=== PATIENT | male | born 1965 | race Caucasian/White ===

== ENCOUNTER 2017-08-27 05:06 | Emergency (ER) | payer BC ==
[2017-08-27 05:40] VITALS: BMI 25.8
--- NOTE | 2017-08-27 06:28 | PDOC ---
*Physical Exam - Vital Signs Last Vital Signs Temp Pulse Resp BP Pulse Ox 87 14 100/71 96 08/27/17 05:23 08/27/17 05:23 08/27/17 05:23 08/27/17 05:23 ED Treatment Course - LABORATORY CBC & Chemistry Diagram: 08/27/17 06:30 08/27/17 06:30 Medical Decision Making - Medical Decision Making 08/27/17 06:28 agree with care from JUAN ANTONIO Michelle *DC/Admit/Observation/Transfer Diagnosis at time of Disposition: Pedal edema - Discharge Dispostion Disposition: HOME Condition at time of disposition: Good - Prescriptions Prescriptions: Amiodarone HCl [Cordarone -] 200 mg PO DAILY #30 tablet Amoxicillin/Potassium Clav [Amox-Clav 875-125 mg Tablet] 1 each PO BID #4 tablet Apixaban [Eliquis] 10 mg PO BID #13 tablet Apixaban [Eliquis] 5 mg PO BID #30 tablet Aspirin 81 mg PO DAILY #30 tab.chew Atorvastatin Ca [Lipitor] 80 mg PO HS #30 tab Docusate Sodium [Colace] 100 mg PO TID PRN #30 capsule PRN Reason: Constipation Furosemide [Lasix] 20 mg PO BID #28 tablet Metoprolol Succinate [Toprol Xl] 25 mg PO DAILY #30 tab.er.24h - Referrals Referrals: STAFF,NOT ON [Primary Care Provider] - - Patient Instructions Printed Discharge Instructions: DI for Dependent Edema Additional Instructions: At this time your ultrasound of your lower extremities show no acute findings. Please continue the medication as previously prescribed and elevate your legs as much as possible when not ambulating. Please also follow-up with your surgeon and continue with your postoperative instructions. - Post Discharge Activity
--- NOTE | 2017-08-27 06:29 | PDOC ---
History of Present Illness - General Chief Complaint: Allergic Reaction Stated Complaint: ALLERGIC RX Time Seen by Provider: 08/27/17 05:42 History Source: Patient - History of Present Illness Initial Comments: 08/27/17 06:24 52 year old male s/p triple bypass 08/08 at [facility] discharged last night. as per patient on discharge patient was noted to have left leg swelling now noted to have right leg swelling. denies SOB, dizziness, fever/chills. patient is currently on augmentin, lasix and eloquis. Past History - Past Medical History Allergies/Adverse Reactions: Allergies Allergy/AdvReac Type Severity Reaction Status Date / Time No Allergy Information Allergy Verified 08/27/17 05:23 Available Home Medications: Ambulatory Orders Alprazolam [Xanax] 2 mg PO BID 08/27/17 Amiodarone HCl 200 mg PO DAILY 08/27/17 Amoxicillin/Potassium Clav [Augmentin 875-125 Tablet] 1 each PO DAILY 08/27/17 Apixaban [Eliquis -] 5 mg PO DAILY 08/27/17 Buprenorphine HCl/Naloxone HCl [Suboxone 8 mg-2 mg Sl Tablets] 1 each SL BID 12/09 Docusate Sodium 100 mg PO DAILY 08/27/17 Furosemide [Lasix -] 20 mg PO DAILY 08/27/17 Metoprolol Succinate [Toprol Xl] 25 mg PO DAILY 08/27/17 Asthma: Yes COPD: No HTN: Yes - Surgical History Cardiac Surgery: Yes (Triple Bypass, 08/09/2017) - Immunization History Immunization Up to Date: Yes - Suicide/Smoking/Psychosocial Hx Smoking History: Former smoker Have you smoked in the past 12 months: No If you are a former smoker, when did you quit?: 08/08/2017 Information on smoking cessation initiated: No Hx Alcohol Use: No Drug/Substance Use Hx: No Substance Use Type: None Review of Systems - Review of Systems Able to Perform ROS?: Yes Is the patient limited Danish proficient: No Constitutional: No: Symptoms Reported, See HPI, Chills, Diaphoresis, Fever, Loss of Appetite, Malaise, Night Sweats, Weakness, Weight Stable, Unintentional Wgt. Loss, Unexplained wgt Loss, Other Respiratory: No: Symptoms reported, See HPI, Cough, Orthopnea, Shortness of Breath, SOB with Exertion, SOB at Rest, Stridor, Wheezing, Productive cough, Hemoptysis, Other Cardiac (ROS): Yes: Edema (lower extremity edema). No: Symptoms Reported, See HPI, Chest Pain, Irregular Heart Rate, Lightheadedness, Palpitations, Syncope, Chest Tightness, Other *Physical Exam - Vital Signs Last Vital Signs Temp Pulse Resp BP Pulse Ox 87 14 100/71 96 08/27/17 05:23 08/27/17 05:23 08/27/17 05:23 08/27/17 05:23 - Physical Exam General Appearance: Yes: Appropriately Dressed Respiratory/Chest: positive: Lungs Clear, Normal Breath Sounds Cardiovascular: positive: Regular Rhythm, Regular Rate, Other (midsternal healing surgical wound . lap site small serous drainage noted. ) Gastrointestinal/Abdominal: positive: Normal Bowel Sounds, Soft Musculoskeletal: positive: Normal Inspection Extremity: positive: Normal Capillary Refill, Normal Inspection, Normal Range of Motion, Pedal Edema (b/l pedal pitting edema. left lower extremity pulse not palpated. ) Progress Note - Progress Note Progress Note: A: pedal edema P: cbc cmp bnp *DC/Admit/Observation/Transfer Diagnosis at time of Disposition: Pedal edema - Referrals Referrals: STAFF,NOT ON [Primary Care Provider] - - Patient Instructions - Post Discharge Activity
[2017-08-27 06:34] VITALS: BP 102/76; PULSE 84
[2017-08-27 07:18] LABS: BASO % 0.8 % (0-2.0); EOS % 1.4 % (0-4.5); HEMATOCRIT 28.9 % (35.4-49); HEMOGLOBIN 8.9 GM/dL (11.7-16.9); LYMPH % 20.9 % (8-40); MCH 29.3 pg (25.7-33.7); MEAN CELL VOLUME 94.6 fl (80-96); MEAN PLT VOLUME 8.5 fl (7.5-11.1); MONO % 9.6 % (3.8-10.2); NEUT % 67.3 % (42.8-82.8); PLATELET COUNT 340 K/MM3 (134-434); RBC 3.06 M/mm3 (4.00-5.60); RDW 16.4 % (11.9-15.9); WHITE BLOOD COUNT 16.1 K/mm3 (4.0-10.0)
--- NOTE | 2017-08-27 07:27 | PDOC ---
*Physical Exam - Vital Signs Last Vital Signs Temp Pulse Resp BP Pulse Ox 84 14 102/76 96 08/27/17 05:53 08/27/17 05:53 08/27/17 05:53 08/27/17 05:23 ED Treatment Course - LABORATORY CBC & Chemistry Diagram: 08/27/17 06:30 08/27/17 06:30 Medical Decision Making - Medical Decision Making 08/27/17 07:17 Patient received in sign out from JUAN ANTONIO Michelle. Patient pending ultrasound of bilateral lower extremities and arterial ultrasound . patient status post CABG and is currently on eliquis. 08/27/17 09:50 Arterial duplex of the left lower extremity shows no evidence of occlusion or significant stenosis. Duplex of bilateral lower extremity shows no vascular compromise of DVT. Patient to be discharged home with recommendations to follow- up with his surgeon and continue with medication as prescribed postoperatively. *DC/Admit/Observation/Transfer Diagnosis at time of Disposition: Pedal edema - Discharge Dispostion Disposition: HOME Condition at time of disposition: Good - Referrals Referrals: STAFF,NOT ON [Primary Care Provider] - - Patient Instructions Printed Discharge Instructions: DI for Dependent Edema Additional Instructions: At this time your ultrasound of your lower extremities show no acute findings. Please continue the medication as previously prescribed and elevate your legs as much as possible when not ambulating. Please also follow-up with your surgeon and continue with your postoperative instructions. - Post Discharge Activity
[2017-08-27 07:42] LABS: ALBUMIN 2.8 g/dl (3.4-5.0); ANION GAP 10 (8-16); BILIRUBIN,TOTAL 0.4 mg/dL (0.2-1.0); BLOOD UREA NITROGEN 15 mg/dL (7-18); CALCIUM 7.8 mg/dL (8.5-10.1); CHLORIDE 104 mmol/L (98-107); CO2 25 mmol/L (21-32); CREATININE 1.4 mg/dL (0.7-1.3); GLUCOSE,RANDOM 98 mg/dL (74-106); MAGNESIUM 2.3 mg/dL (1.8-2.4); POTASSIUM 4.5 mmol/L (3.5-5.1); SGOT/AST 17 U/L (15-37); SGPT/ALT 43 U/L (12-78); SODIUM 139 mmol/L (136-145); TOT PROT 6.1 g/dl (6.4-8.2)
[2017-08-27 07:43] LABS: INR 2.42 (0.82-1.09); PROTHROMBIN TIME (PATIENT) 27.4 SEC (9.98-11.88)
[2017-08-27 07:44] LABS: ALK PHOS 82 U/L (45-117)
--- NOTE | 2017-08-27 12:27 | EKG ---
Test Reason : Blood Pressure : / mmHG Vent. Rate : 082 BPM Atrial Rate : 082 BPM P-R Int : 298 ms QRS Dur : 128 ms QT Int : 400 ms P-R-T Axes : 043 053 241 degrees QTc Int : 467 ms SINUS RHYTHM WITH 1ST DEGREE A-V BLOCK NON-SPECIFIC INTRA-VENTRICULAR CONDUCTION BLOCK POSSIBLE INFERIOR INFARCT , AGE UNDETERMINED ABNORMAL ECG NO PREVIOUS ECGS AVAILABLE Confirmed by COLEMAN FAJARDO, ARNULFO ([id number]) on 08/27/2017 12:27:43 PM Referred By: Confirmed By:ARNULFO CEE MD
== END 2017-08-27 10:26 | disposition home or self-care (01) ==
LOC: JER 05:06
DX: R60.9 Edema, unspecified (principal); I25.10 Atherosclerotic heart disease of native coronary artery without angina pectoris; I25.82 Chronic total occlusion of coronary artery; I10 Essential (primary) hypertension; Z95.1 Presence of aortocoronary bypass graft; Z87.891 Personal history of nicotine dependence; J45.909 Unspecified asthma, uncomplicated
CPT/HCPCS: 36415; 80053; 82550; 83735; 83880; 84484; 85025; 85610; 93005; 93010; 93926-TC; 93970-TC; 99283-25

== ENCOUNTER 2017-09-07 21:27 | Inpatient (IN) | payer BC ==
--- NOTE | 2017-09-07 22:40 | PDOC ---
Attending Attestation - HPI HPI: 09/07/17 23:25 The patient is a 52 year old male, with a significant past medical history of triple bypass 08/08/18, previously seen in the ED on 08/27/17 for left leg swelling, who presents to the emergency department with bilateral lower extremity redness and swelling. Patient states that his left leg has worsened and become erythematous and his right leg has begun to swell as well. Patient has a low grade fever as well. Patient denies chest pain upon rest and admits to some chest discomfort when he coughs. He denies any recent chills, headache or dizziness. He denies any recent nausea , vomit, diarrhea or constipation. He denies any recent shortness of breath. He denies any recent dysuria, frequency, urgency or hematuria. <Dilma Spaulding - Last Filed: 09/07/17 23:25> - Resident Resident Name: Marty Bragg - ED Attending Attestation I have performed the following: I have examined & evaluated the patient, The case was reviewed & discussed with the resident, I agree w/resident's findings & plan, Exceptions are as noted - Physicial Exam PE: 09/07/17 22:51 Physical Exam General Appearance: Yes: Appropriately Dressed. No: Apparent Distress, Intoxicated HEENT: positive: EOMI, GIBRAN, Normal ENT Inspection, Normal Voice, TMs Normal, Pharynx Normal. negative: Pale Conjunctivae, Photophobia, Scleral Icterus (R), Scleral Icterus (L) Neck: positive: Trachea midline, Normal Thyroid, Supple. negative: Tender, Rigid, Carotid bruit, Stridor, Lymphadenopathy (R), Lymphadenopathy (L), Thyromegaly Respiratory/Chest: positive: Lungs Clear, Normal Breath Sounds, well healed median sternotomy scar negative: Chest Tender, Respiratory Distress, Accessory Muscle Use, Labored Respiration, RES, Crackles, Rales, Rhonchi, Stridor, Wheezing, Dullness Cardiovascular: positive: Regular Rhythm, Regular Rate, S1, S2. negative: Edema , JVD, Murmur, Bradycardia, Tachycardia Vascular Pulses: Dorsalis-Pedis (R): 2+, Doralis-Pedis (L): 2+ Gastrointestinal/Abdominal: positive: Normal Bowel Sounds, Flat, Soft. negative : Tender, Organomegaly, Pulsatile Mass, Increased Bowel Sounds, Decreased BS, Distended, Guarding, Rebound, Hernia, Hepatomegaly, Spleenomegaly Lymphatic: negative: Adenopathy, Tenderness Musculoskeletal: positive: Normal Inspection. negative: CVA Tenderness, Decreased Range of Motion Extremity: positive: bilateral lower extremity edema L>R. + ertheyma to left lower extremity, Normal Range of Motion, Pelvis Stable. negative: Tender, Integumentary: positive: Normal Color, Dry, Warm. negative: Cyanotic, Erythema , Jaundice, Rash Neurologic: positive: photo finish photographer II-XII NML intact, Fully Oriented, Alert, Normal Mood/ Affect, Motor Strength 5/5. negative: EOM Palsy, Facial Droop, Sensory Deficit - Medical Decision Making 09/08/17 02:06 Pt to be admitted for IV ABx for left leg cellulitis <Brad Ballard - Last Filed: 09/08/17 02:07>
[2017-09-07 23:15] LABS: BASO % 1.3 % (0-2.0); EOS % 2.7 % (0-4.5); HEMATOCRIT 25.7 % (35.4-49); HEMOGLOBIN 8.1 GM/dL (11.7-16.9); LYMPH % 20.4 % (8-40); MCH 28.6 pg (25.7-33.7); MCHC 31.5 g/dl (32.0-35.9); MEAN CELL VOLUME 90.8 fl (80-96); MEAN PLT VOLUME 8.9 fl (7.5-11.1); MONO % 12.1 % (3.8-10.2); NEUT % 63.5 % (42.8-82.8); PLATELET COUNT 211 K/MM3 (134-434); RBC 2.83 M/mm3 (4.00-5.60); RDW 16.5 % (11.9-15.9); WHITE BLOOD COUNT 8.9 K/mm3 (4.0-10.0)
[2017-09-07 23:47] LABS: ALBUMIN 2.7 g/dl (3.4-5.0); ANION GAP 9 (8-16); BILIRUBIN,TOTAL 0.3 mg/dL (0.2-1.0); BLOOD UREA NITROGEN 11 mg/dL (7-18); CALCIUM 7.6 mg/dL (8.5-10.1); CHLORIDE 101 mmol/L (98-107); CO2 28 mmol/L (21-32); CREATININE 1.4 mg/dL (0.7-1.3); GLUCOSE,RANDOM 94 mg/dL (74-106); POTASSIUM 4.1 mmol/L (3.5-5.1); SGOT/AST 27 U/L (15-37); SGPT/ALT 25 U/L (12-78); SODIUM 138 mmol/L (136-145); TOT PROT 6.9 g/dl (6.4-8.2)
--- NOTE | 2017-09-07 23:48 | PDOC ---
History of Present Illness - General Chief Complaint: Chest Pain Stated Complaint: CHEST APIN Time Seen by Provider: 09/07/17 21:51 History Source: Patient Exam Limitations: No Limitations - History of Present Illness Initial Comments: 09/07/17 23:48 The patient is a 52M with a PMH of HTN and is s/p open heart surgery who presents to the ED with complaints of increased R LE swelling. The patient states that when he was d/c on 08/[address] [facility] from his open heart surgery, he had baseline L leg edema. Since then, his L LE edema has worsened. In addition, he states that he has had 2 days of R LE edema which has not happened before. He also notes that his L LE has become more red. He denies any fever, chills, nausea, vomiting, or surgical scar pain. Past History - Past Medical History Allergies/Adverse Reactions: Allergies Allergy/AdvReac Type Severity Reaction Status Date / Time heparin Allergy Verified 09/07/17 22:36 Home Medications: Ambulatory Orders Alprazolam [Xanax] 2 mg PO BID 08/27/17 Amiodarone HCl [Cordarone -] 200 mg PO DAILY #30 tablet 08/27/17 Amoxicillin/Potassium Clav [Amox-Clav 875-125 mg Tablet] 1 each PO BID #4 tablet 08/27/17 Apixaban [Eliquis] 5 mg PO BID #30 tablet 08/27/17 Aspirin 81 mg PO DAILY #30 tab.chew 08/27/17 Atorvastatin Ca [Lipitor] 80 mg PO HS #30 tab 08/27/17 Buprenorphine HCl/Naloxone HCl [Suboxone 8 mg-2 mg Sl Tablets] 1 each SL BID 12/09 Docusate Sodium [Colace] 100 mg PO TID PRN #30 capsule 08/27/17 Furosemide [Lasix] 20 mg PO BID #28 tablet 08/27/17 Metoprolol Succinate [Toprol Xl] 25 mg PO DAILY #30 tab.er.24h 08/27/17 Asthma: Yes COPD: No HTN: Yes - Surgical History Cardiac Surgery: Yes (Triple Bypass, 08/09/2017) - Immunization History Immunization Up to Date: Yes - Suicide/Smoking/Psychosocial Hx Smoking History: Unknown if ever smoked Have you smoked in the past 12 months: No If you are a former smoker, when did you quit?: 08/08/2017 Information on smoking cessation initiated: No Hx Alcohol Use: No Drug/Substance Use Hx: No Substance Use Type: None Review of Systems - Review of Systems Able to Perform ROS?: Yes Comments:: 09/07/17 23:57 GENERAL/CONSTITUTIONAL: No fever or chills. No weakness. HEAD, EYES, EARS, NOSE AND THROAT: No change in vision. No ear pain or discharge. No sore throat. GASTROINTESTINAL: No nausea, vomiting, diarrhea, constipation, or abdominal pain. GENITOURINARY: No dysuria, frequency, hematuria, or change in urination. CARDIOVASCULAR: No chest pain, palpitations, or lightheadedness. RESPIRATORY: No cough, wheezing, shortness of breath, or hemoptysis. MUSCULOSKELETAL: No joint or muscle swelling or pain. No neck or back pain. SKIN: No rash or lesions. NEUROLOGIC: No headache, numbness, tingling, weakness, loss of consciousness, or change in strength/sensation. ENDOCRINE: No increased thirst. No abnormal weight change. HEMATOLOGIC/LYMPHATIC: No anemia, easy bleeding, or history of blood clots. ALLERGIC/IMMUNOLOGIC: No hives or skin allergy. Is the patient limited Malian proficient: No *Physical Exam - Vital Signs Last Vital Signs Temp Pulse Resp BP Pulse Ox 100.0 F H 82 14 99/60 99 09/07/17 21:53 09/07/17 21:53 09/07/17 21:53 09/07/17 21:53 09/07/17 21:53 - Physical Exam Comments: 09/08/17 02:11 GENERAL: Well developed, well nourished. Awake and alert. No acute distress. HEENT: Normocephalic, atraumatic. Hearing grossly normal. Moist mucous membranes. PERRLA, EOMI. No conjunctival pallor. Sclera are non-icteric. Oropharynx is clear. NECK: Supple. Full ROM. No JVD. Carotid pulses 2+ and symmetric, without bruits. No thyromegaly. No lymphadenopathy. CARDIOVASCULAR: Regular rate and rhythm. No murmurs, rubs, or gallops. Distal pulses are 2+ and symmetric. PULMONARY: No evidence of respiratory distress. Lungs clear to auscultation bilaterally. No wheezing, rales or rhonchi. ABDOMINAL: Soft. Non-tender. Non-distended. No rebound or guarding. No organomegaly. Normoactive bowel sounds. GENITOURINARY: No CVA tenderness bilaterally. MUSCULOSKELETAL: Normal range of motion at all joints. No bony deformities or tenderness. EXTREMITIES: 4+ edema in LE b/l. L LE is erythematous, warm to touch, non- blanching. No cyanosis. No clubbing. No calf tenderness. SKIN: Warm and dry. Normal capillary refill. No rashes. No jaundice. NEUROLOGICAL: Alert, awake, appropriate. Cranial nerves 2-12 intact. Normal speech. Gait is normal without ataxia. PSYCHIATRIC: Cooperative. Good eye contact. Appropriate mood and affect. Heart Score/ECG Review #1 ECG reviewed & interpreted by me at: 02:17 General ECG Interpretation: Sinus Rhythm, Normal Rate, Normal Intervals, No acute ischemic changes Compared to previous ECG there are: No significant change ED Treatment Course - LABORATORY CBC & Chemistry Diagram: 09/07/17 23:00 09/07/17 22:34 - ADDITIONAL ORDERS Additional order review: 09/07/17 23:00 RBC 2.83 L MCV 90.8 MCHC 31.5 L RDW 16.5 H MPV 8.9 Neutrophils % 63.5 Lymphocytes % 20.4 Monocytes % 12.1 H Eosinophils % 2.7 D Basophils % 1.3 - RADIOLOGY Radiology Studies Ordered: Category Date Time Status CHEST X-RAY PORTABLE* [RAD] Stat Radiology 09/07/17 22:38 Taken DUPLEX VASCUL US-2LEGS [US] Stat Ultrasound 09/07/17 22:40 Completed Medical Decision Making - Medical Decision Making 09/08/17 01:35 The patient is a 52M with a PMH of HTN and s/p open heart surgery who is presenting with new onset b/l LE edema and L LE cellulitis. Broad spectrum abx started (vanc/zosyn). 1 L fluid ordered 2/2 hypotension. BNP elevated 4500+. Pt admitted to Dr. Hoskins. *DC/Admit/Observation/Transfer Diagnosis at time of Disposition: Pedal edema Acute exacerbation of CHF (congestive heart failure) Qualifiers: Congestive heart failure type: unspecified Qualified Code(s): I50.9 - Heart failure, unspecified - Discharge Dispostion Condition at time of disposition: Stable Admit: Yes - Referrals Referrals: STAFF,NOT ON [Primary Care Provider] - - Patient Instructions - Post Discharge Activity
[2017-09-07 23:50] LABS: ALK PHOS 175 U/L (45-117); N-TERMINAL BNP 4544.89 pg/ml (5-125)
[2017-09-07 23:51] LABS: INR 1.86 (0.82-1.09)
[2017-09-07] MEDS ORDERED: SODIUM CHLORIDE 0.9% 1000 ML INFUS.BAG IV ONE (23:51)
[2017-09-07] MEDS ORDERED: VANCOMYCIN 1,000 MG in DEXTROSE 5%-WATER - 250 ML IVPB ONE (23:51)
[2017-09-07] MEDS ORDERED: PIPERACILLIN/TAZOB 3.375 GM/50 ML PRE-DOCKED IV ONE (23:51)
[2017-09-07] MEDS ORDERED: VANCOMYCIN 1 GRAM (PRE-DOCKED) 1,000 MG/250 ML BAG IVPB ONE (23:56)
--- NOTE | 2017-09-08 02:48 | HP ---
<Gordy Hoskins - Last Filed: 09/08/17 05:55> ATTENDING PHYSICIAN STATEMENT I saw and evaluated the patient. I reviewed the resident's note and discussed the case with the resident. I agree with the resident's findings and plan as documented. 52 yo with recent CABG presents with LE edema and decreased UA output . Has clinical signs of CHF on exam . Labs reveal anemia of 8.1 . Vital Signs Temperature 100.0 F H 09/07/17 21:53 Pulse Rate 82 09/07/17 21:53 Respiratory Rate 14 09/07/17 21:53 Blood Pressure 99/60 09/07/17 21:53 O2 Sat by Pulse Oximetry (%) 99 09/07/17 21:53 HEENT PERRLA, DRY MM CVS bibasilar crackles , S1 S2 WNL sternotomy scar healing CBC, BMP 09/07/17 23:00 09/07/17 22:34 CMP Sodium 138 mmol/L (136-145) 09/07/17 22:34 Potassium 4.1 mmol/L (3.5-5.1) 09/07/17 22:34 Chloride 101 mmol/L (98-107) 09/07/17 22:34 Carbon Dioxide 28 mmol/L (21-32) 09/07/17 22:34 Anion Gap 9 (8-16) 09/07/17 22:34 BUN 11 mg/dL (7-18) D 09/07/17 22:34 Creatinine 1.4 mg/dL (0.7-1.3) H 09/07/17 22:34 Creat Clearance w eGFR 53.22 (>60) 09/07/17 22:34 Random Glucose 94 mg/dL (74-106) 09/07/17 22:34 Lactic Acid 1.2 mmol/L (0.0-2.0) 09/07/17 23:27 Calcium 7.6 mg/dL (8.5-10.1) L 09/07/17 22:34 Total Bilirubin 0.3 mg/dL (0.2-1.0) D 09/07/17 22:34 AST 27 U/L (15-37) D 09/07/17 22:34 ALT 25 U/L (12-78) D 09/07/17 22:34 Alkaline Phosphatase 175 U/L (45-117) H D 09/07/17 22:34 Creatine Kinase 83 IU/L (39-308) 09/07/17 22:34 Troponin I 0.04 ng/ml (0.00-0.05) D 09/07/17 22:34 B-Natriuretic Peptide 4544.89 pg/ml (5-125) H 09/07/17 22:34 Total Protein 6.9 g/dl (6.4-8.2) 09/07/17 22:34 Albumin 2.7 g/dl (3.4-5.0) L 09/07/17 22:34 Agree with A/p above will request records from [facility] in am <Hunter Tyler - Last Filed: 09/08/17 19:50> CHIEF COMPLAINT: b/l LE edema PCP: Ene Raymond (cell: [phone], fax [phone]) HISTORY OF PRESENT ILLNESS: Pt is a 52 y/o M with PMH Htn, CVA (2012), [place] (2015), CABG 08/2017 who presents to ED with b/l LE swelling. Pt states that he was d/c'ed from [facility] on 08/26 , and at that time, his left leg was swollen (pt had vein graft harvested from left leg). Pt states that on 08/27, he developed R leg swelling, for which he visited [facility] and had dopplers done, which were negative. Pt states he went home , continued taking his medications as directed and his leg swelling did not resolve, so he finally came to the ED tonight. In that time, pt notes that he has not been urinating more than once daily despite eating and drinking normally and taking lasix. At this time, pt states that both legs are mildly tender, and has noticed the the left feels warmer than the right. Pt denies fever, chills, nausea, vomiting, diarrhea, headache, sob, palpitations , abdominal pain, chest pain. Note: pt states he was told at [facility] that he had a "reaction" to heparin. Does not recall hearing "HIT" ER course was notable for: (1) wbc 8.1, INR 1.86 (2.42 on 08/27/2017), Administrative Assistant Data Entry 1.4 (pt does not report CKD hist) , BNP 4544 (2229 on 08/27/2017) (2) CXR unremarkable. Dopplers reportedly unremarkable pending official report (3) Recent Travel: denies PAST MEDICAL HISTORY: HTN, Asthma, Anxiety, CVA (2013), [place] (2016), PAST SURGICAL HISTORY: CABG (08/2017) Social History: Smoking: smoked from age of 9. Quit 1 month ago Alcohol: denies Drugs: marijuana occasionally. Quit 1 month ago Family History: mother with kidney disease Allergies heparin Allergy (Verified 09/07/17 22:36) HOME MEDICATIONS: Home Medications Medication Instructions Recorded Alprazolam [Xanax] 2 mg PO BID 08/27/17 Amiodarone HCl [Cordarone -] 200 mg PO DAILY #30 tablet 08/27/17 Amoxicillin/Potassium Clav 1 each PO BID #4 tablet 08/27/17 [Amox-Clav 875-125 mg Tablet] Apixaban [Eliquis] 5 mg PO BID #30 tablet 08/27/17 Aspirin 81 mg PO DAILY #30 tab.chew 08/27/17 Atorvastatin Ca [Lipitor] 80 mg PO HS #30 tab 08/27/17 Buprenorphine HCl/Naloxone HCl 1 each SL BID 08/27/17 [Suboxone 8 mg-2 mg Sl Tablets] Docusate Sodium [Colace] 100 mg PO TID PRN #30 capsule 08/27/17 Furosemide [Lasix] 20 mg PO BID #28 tablet 08/27/17 Metoprolol Succinate [Toprol Xl] 25 mg PO DAILY #30 tab.er.24h 08/27/17 REVIEW OF SYSTEMS CONSTITUTIONAL: Absent: fever, chills, diaphoresis, generalized weakness, malaise, loss of appetite, weight change HEENT: Absent: rhinorrhea, nasal congestion, throat pain, throat swelling, difficulty swallowing, mouth swelling, ear pain, eye pain, visual changes CARDIOVASCULAR: peripheral edema Absent: chest pain, syncope, palpitations, irregular heart rate, lightheadedness , RESPIRATORY: Absent: cough, shortness of breath, dyspnea with exertion, orthopnea, wheezing, stridor, hemoptysis GASTROINTESTINAL: Absent: abdominal pain, abdominal distension, nausea, vomiting, diarrhea, constipation, melena, hematochezia GENITOURINARY: Absent: dysuria, frequency, urgency, hesitancy, hematuria, flank pain, genital pain MUSCULOSKELETAL: Absent: myalgia, arthralgia, joint swelling, back pain, neck pain SKIN: Absent: rash, itching, pallor HEMATOLOGIC/IMMUNOLOGIC: Absent: easy bleeding, easy bruising, lymphadenopathy, frequent infections ENDOCRINE: Absent: unexplained weight gain, unexplained weight loss, heat intolerance, cold intolerance NEUROLOGIC: Absent: headache, focal weakness or paresthesias, dizziness, unsteady gait, seizure, mental status changes, bladder or bowel incontinence PSYCHIATRIC: Absent: anxiety, depression, suicidal or homicidal ideation, hallucinations. PHYSICAL EXAMINATION Vital Signs - 24 hr 09/07/17 21:53 Temperature 100.0 F H Pulse Rate 82 Respiratory 14 Rate Blood Pressure 99/60 O2 Sat by Pulse 99 Oximetry (%) GENERAL: Awake, alert, and fully oriented, in no acute distress. HEAD: Normal with no signs of trauma. EYES: Pupils equal, round and reactive to light, extraocular movements intact, sclera anicteric, conjunctiva clear. No lid lag. EARS, NOSE, THROAT: oropharynx clear without exudates. DRY mucous membranes. NECK: Normal range of motion, supple without lymphadenopathy, JVD, or masses. No carotid bruits LUNGS: fine bibasilar crackles. No accessory muscle use. No reps distress HEART: Regular rate and rhythm, normal S1 and S2 . No murmur, rub or gallop noted. ABDOMEN: Soft, nontender, not distended, normoactive bowel sounds, no guarding, no rebound, no masses. No hepatomegaly or splenomegaly. MUSCULOSKELETAL: Normal range of motion at all joints. No bony deformities or tenderness. No CVA tenderness. UPPER EXTREMITIES: 2+ pulses, warm, well-perfused. No cyanosis. No clubbing. No peripheral edema. LOWER EXTREMITIES: 2+ DP RLE, 1+DP LLE, warm, well-perfused. No calf tenderness. 2+ pitting edema b/l. L warmer than right. L slightly erythematous. Left knee with reddened area. Pt reports has been migrating down from groin at access site from prior cardiac cath. NEUROLOGICAL: Cranial nerves II-XII intact. Normal speech. gait not observed. PSYCHIATRIC: Cooperative. Good eye contact. Appropriate mood and affect. SKIN: Warm, dry, normal turgor, no rashes or lesions noted, normal capillary refill. Laboratory Results - last 24 hr 09/07/17 09/07/17 09/07/17 22:34 22:34 23:00 WBC 8.9 D RBC 2.83 L Hgb 8.1 L Hct 25.7 L MCV 90.8 MCH 28.6 MCHC 31.5 L RDW 16.5 H Plt Count 211 D MPV 8.9 Neutrophils % 63.5 Lymphocytes % 20.4 Monocytes % 12.1 H Eosinophils % 2.7 D Basophils % 1.3 PT with INR 21.00 H INR 1.86 H Sodium 138 Potassium 4.1 Chloride 101 Carbon Dioxide 28 Anion Gap 9 BUN 11 D Creatinine 1.4 H Creat Clearance w eGFR 53.22 Random Glucose 94 Lactic Acid Calcium 7.6 L Total Bilirubin 0.3 D AST 27 D ALT 25 D Alkaline Phosphatase 175 H D Creatine Kinase 83 Troponin I 0.04 D B-Natriuretic Peptide 4544.89 H Total Protein 6.9 Albumin 2.7 L 09/07/17 23:27 WBC RBC Hgb Hct MCV MCH MCHC RDW Plt Count MPV Neutrophils % Lymphocytes % Monocytes % Eosinophils % Basophils % PT with INR INR Sodium Potassium Chloride Carbon Dioxide Anion Gap BUN Creatinine Creat Clearance w eGFR Random Glucose Lactic Acid 1.2 Calcium Total Bilirubin AST ALT Alkaline Phosphatase Creatine Kinase Troponin I B-Natriuretic Peptide Total Protein Albumin ASSESSMENT/PLAN: Pt is a 52 y/o M with PMH CABG (08/2017) who presents with b/l LE edema since 08/27. Pt is being observed with plan to r/o CHF vs cellulitis. #r/o CHF -Bibasilar crackles and b/l LE edema -note that CXR without opacification -BNP doubled since 08/27 -Pt not urinating frequently despite Lasix -c/w Lasix 40mg IV daily -EKG unremarkable -strict I/O -Echo (likely had one done at [facility]) -rec am team to consult cardio and speak with pt's PCP &/or chocolate dipper/CT surgeon -c/w amiodarone, liptor, metopralol -Incentive spirometer #r/o Cellulitis -b/l LE swelling -LLE redness and warmth > right -Doppler official read pending -Pt on IV ABx #r/o LETITIA -Pt has dry mucous membranes -Administrative Assistant Data Entry 1.4 (1.4 on 08/27/2017) -unclear baseline -cautious to give fluids in setting of possible CHF s/p recent CABG #Note Pt brought records with him. Surgeons: Zachariah Moore, Franklin Kline. Procedures done: Mitral replacement, L ventricular aneurysm repair, CABG x3 vessels. PCP: Ene Raymond (cell: [phone], fax [phone]) #HTN -BP currently under control #Anemia -Hb 8.1 -consider transfusion at Hb< 8 in post-CABG pt #Asthma -c/w home meds #Anxiety -pt currently calm and without anxiety -c/w home meds in am #FEN -Not on fluids (receiving some with IV ABx) #Dispo -Tele/Obs Hunter Tyler MD PGY-1 Visit type - Emergency Visit Emergency Visit: Yes ED Registration Date: 09/08/17 Care time: The patient presented to the Emergency Department on the above date and was hospitalized for further evaluation of their emergent condition. - New Patient This patient is new to me today: Yes Date on this admission: 09/08/17 - Critical Care Critical Care patient: No
[2017-09-08] MEDS ORDERED: DOCUSATE SODIUM 100 MG CAPSULE (FP) PO PRN (04:30)
[2017-09-08] MEDS ORDERED: FUROSEMIDE 20 MG TABLET (FP) PO SCH (06:00)
[2017-09-08 06:24] LABS: HEMATOCRIT 23.4 % (35.4-49); HEMOGLOBIN 7.4 GM/dL (11.7-16.9); MCH 28.3 pg (25.7-33.7); MCHC 31.7 g/dl (32.0-35.9); MEAN CELL VOLUME 89.4 fl (80-96); MEAN PLT VOLUME 8.3 fl (7.5-11.1); PLATELET COUNT 224 K/MM3 (134-434); RBC 2.62 M/mm3 (4.00-5.60); RDW 16.3 % (11.9-15.9); WHITE BLOOD COUNT 9.6 K/mm3 (4.0-10.0)
[2017-09-08 06:58] LABS: ALBUMIN 2.5 g/dl (3.4-5.0); ANION GAP 7 (8-16); BILIRUBIN,TOTAL 0.4 mg/dL (0.2-1.0); BLOOD UREA NITROGEN 11 mg/dL (7-18); CALCIUM 7.4 mg/dL (8.5-10.1); CHLORIDE 101 mmol/L (98-107); CO2 29 mmol/L (21-32); CREATININE 1.3 mg/dL (0.7-1.3); GLUCOSE,RANDOM 85 mg/dL (74-106); PHOSPHOROUS 3.5 mg/dL (2.5-4.9); SGPT/ALT 22 U/L (12-78); SODIUM 137 mmol/L (136-145); TOT PROT 6.4 g/dl (6.4-8.2)
[2017-09-08 06:59] LABS: ALK PHOS 153 U/L (45-117)
[2017-09-08 07:03] LABS: SGOT/AST 28 U/L (15-37)
--- NOTE | 2017-09-08 07:18 | PN ---
Physical Exam: SUBJECTIVE: Patient seen and examined Pt brought records with him. Surgeons: Zachariah Moore, Franklin Kline. Procedures done: Mitral replacement, L ventricular aneurysm repair, CABG x3 vessels. PCP: Ene Raymond (cell: [phone], fax [phone]) OBJECTIVE: Vital Signs Period Temp Pulse Resp BP Sys/Vines Pulse Ox Last 24 Hr 100.0 F 77-82 14 98-99/60-67 95-99 GENERAL: The patient is awake, alert, and fully oriented, in no acute distress. HEAD: Normal with no signs of trauma. EYES: PERRL, extraocular movements intact, sclera anicteric, conjunctiva clear. No ptosis. ENT: Ears normal, nares patent, oropharynx clear without exudates, moist mucous membranes. NECK: Trachea midline, full range of motion, supple. LUNGS: Breath sounds equal, clear to auscultation bilaterally, no wheezes, no crackles, no accessory muscle use. HEART: Regular rate and rhythm, S1, S2 without murmur, rub or gallop. ABDOMEN: Soft, nontender, nondistended, normoactive bowel sounds, no guarding, no rebound, no hepatosplenomegaly, no masses. EXTREMITIES: 2+ pulses, warm, well-perfused, no edema. NEUROLOGICAL: Cranial nerves II through XII grossly intact. Normal speech, gait not observed. PSYCH: Normal mood, normal affect. SKIN: Warm, dry, normal turgor, no rashes or lesions noted Laboratory Results - last 24 hr 09/07/17 09/07/17 09/07/17 22:34 22:34 23:00 WBC 8.9 D RBC 2.83 L Hgb 8.1 L Hct 25.7 L MCV 90.8 MCH 28.6 MCHC 31.5 L RDW 16.5 H Plt Count 211 D MPV 8.9 Neutrophils % 63.5 Lymphocytes % 20.4 Monocytes % 12.1 H Eosinophils % 2.7 D Basophils % 1.3 PT with INR 21.00 H INR 1.86 H Sodium 138 Potassium 4.1 Chloride 101 Carbon Dioxide 28 Anion Gap 9 BUN 11 D Creatinine 1.4 H Creat Clearance w eGFR 53.22 Random Glucose 94 Lactic Acid Calcium 7.6 L Phosphorus Magnesium Total Bilirubin 0.3 D AST 27 D ALT 25 D Alkaline Phosphatase 175 H D Creatine Kinase 83 Troponin I 0.04 D B-Natriuretic Peptide 4544.89 H Total Protein 6.9 Albumin 2.7 L 09/07/17 09/08/17 09/08/17 23:27 06:18 06:18 WBC 9.6 RBC 2.62 L Hgb 7.4 L Hct 23.4 L MCV 89.4 MCH 28.3 MCHC 31.7 L RDW 16.3 H Plt Count 224 MPV 8.3 Neutrophils % No Result Required. Lymphocytes % No Result Required. Monocytes % Eosinophils % Basophils % PT with INR INR Sodium 137 Potassium 4.0 Chloride 101 Carbon Dioxide 29 Anion Gap 7 L BUN 11 Creatinine 1.3 Creat Clearance w eGFR 57.97 Random Glucose 85 Lactic Acid 1.2 Calcium 7.4 L Phosphorus 3.5 Magnesium 2.0 Total Bilirubin 0.4 D AST 28 ALT 22 Alkaline Phosphatase 153 H Creatine Kinase Troponin I B-Natriuretic Peptide Total Protein 6.4 Albumin 2.5 L Active Medications Generic Name Dose Route Start Last Admin Trade Name Freq PRN Reason Stop Dose Admin Alprazolam 2 mg 09/08/17 10:00 Xanax - PO BID [facility] Amiodarone HCl 200 mg 09/08/17 10:00 Cordarone - PO DAILY [facility] Apixaban 5 mg 09/08/17 10:00 Eliquis - PO BID [facility] Aspirin 81 mg 09/08/17 10:00 Asa - PO DAILY [facility] Atorvastatin Calcium 80 mg 09/08/17 22:00 Lipitor - PO HS [facility] Buprenorphine/Naloxone 1 each 09/08/17 10:00 Suboxone 8mg/2mg Sl Film - SL BID [facility] Docusate Sodium 100 mg 09/08/17 04:30 Colace - PO TID PRN CONSTIPATION Furosemide 40 mg 09/08/17 10:00 Lasix Injection - IVPUSH DAILY [facility] Metoprolol Succinate 25 mg 09/08/17 10:00 Toprol Xl - PO DAILY [facility] ASSESSMENT/PLAN: 52 year old male with a past medical history of HTN, CVA (2012), [place] (2015), CABG 08/2017 at [facility] admitted for treatment of CHF and L leg cellulitis. #CHF Exacerbation: due to bibasilar crackles and b/l edema -received lasix 40mg -EKG normal -strict I's/O's -echo #Possible cellulitis: -b/l LE swelling -LLE redness and warmth > right -Doppler official read pending -Pt on IV ABx #LETITIA: -Pt has dry mucous membranes -Cryptoanalysis Teacher 1.4 (1.4 on 08/27/2017) -unclear baseline -cautious to give fluids in setting of possible CHF s/p recent CABG #HTN -BP currently under control #Anemia -Hb 8.1 -consider transfusion at Hb< 8 in post-CABG pt #Asthma -c/w home meds #Anxiety -pt currently calm and without anxiety -c/w home meds in am #FEN -Not on fluids (receiving some with IV ABx) Visit type - Emergency Visit Emergency Visit: No - New Patient This patient is new to me today: Yes Date on this admission: 09/08/17 - Critical Care Critical Care patient: No
[2017-09-08] MEDS: ASPIRIN 81 MG CHEWABLE TABLETS PO SCH (09:27)
[2017-09-08] MEDS: APIXABAN 5 MG TABLET PO SCH ×2 (09:28→22:13)
[2017-09-08] MEDS: AMIODARONE HCL 200 MG TABLET (FP) PO SCH (09:28)
[2017-09-08] MEDS ORDERED: ALPRAZolam 2 MG TABLET ONE (09:29)
[2017-09-08] MEDS: ALPRAZolam 2 MG TABLET PO SCH ×2 (09:30→22:13)
[2017-09-08] MEDS: FUROSEMIDE 40 MG/4 ML INJECTABLE VIAL IVPUSH SCH (09:37)
[2017-09-08] MEDS: METOPROLOL SUCCINATE 25 MG TAB.SR.24H (FP) PO SCH (09:37)
[2017-09-08] MEDS: BUPRENORPHINE/NALOXONE 8 MG/2 MG FILM PACKET SL SCH ×2 (09:38→22:13)
[2017-09-08 10:20] LABS: ANISOCYTOSIS 2+; PLATELET ESTIMATE NORMAL; TARGET CELLS 1+
--- NOTE | 2017-09-08 10:39 | EKG ---
Test Reason : Blood Pressure : / mmHG Vent. Rate : 080 BPM Atrial Rate : 080 BPM P-R Int : 200 ms QRS Dur : 122 ms QT Int : 394 ms P-R-T Axes : 043 028 191 degrees QTc Int : 454 ms NORMAL SINUS RHYTHM INFERIOR INFARCT (CITED ON OR BEFORE 27-AUG-2017) ABNORMAL ECG WHEN COMPARED WITH ECG OF 27-AUG-2017 05:57, NM INTERVAL HAS DECREASED Confirmed by MD Josr, Alonso ([id number]) on 09/08/2017 10:38:56 AM Referred By: Confirmed By:Alonso Ovalles MD
[2017-09-08 11:26] LABS: URINE APPEARANCE CLEAR; URINE BILIRUBIN NEGATIVE (NEGATIVE); URINE BLOOD NEGATIVE (NEGATIVE); URINE COLOR YELLOW; URINE GLUCOSE (UA) NEGATIVE (NEGATIVE); URINE KETONE NEGATIVE (NEGATIVE); URINE LEUK ESTERASE NEGATIVE (NEGATIVE); URINE NITRITE NEGATIVE (NEGATIVE); URINE PROTEIN NEGATIVE (NEGATIVE); URINE UROBILINOGEN 4.0 E.U/dl mg/dL (0.2-1.0)
--- NOTE | 2017-09-08 13:30 | CON.CARD ---
Consult Consult Specialty:: cardiology Reason for Consultation:: recent CABG; CHF - History of Present Illness Chief Complaint: Pt alert; denies chest pain or dyspnea presently, but easily fatigued. History of Present Illness: The patient is a 52 year old male, with a significant past medical history (?at [facility]) of CABG bioprosthetic mitral valve, and ?ventricular aneurysmal repair 08/08/18 (pt denies any prior cardiaic caths or surgeries), previously seen in the ED on 08/27/17 for left leg swelling, who presents to the emergency department with bilateral lower extremity redness and swelling. Patient states that his left leg has worsened and become erythematous and his right leg has begun to swell as well. Patient has a low grade fever as well. Patient denies chest pain upon rest and admits to some chest discomfort when he coughs. He denies any recent chills, fever, headache or dizziness. He denies any recent nausea, vomit, diarrhea or constipation. He denies any recent shortness of breath. He denies any recent dysuria, frequency, urgency or hematuria. Pt says he had an OH in 2016,(had chest pain and "passed out"), but denies having had a coronary angiogram at the time. - History Source History Provided By: Patient, Medical Record Limitations to Obtaining History: No Limitations - Past Medical History Cardio/Vascular: Yes: CAD, CHF, HTN, OH, Other (mitral disease-->bioprosthetic mitral valve ) Pulmonary: No: Sleep Apnea Heme/Onc: Yes: Anemia - Past Surgical History Past Surgical History: Yes: CABG, Valve Replacement Additional Surgical History: ?ventricular aneurysmal repair - Alcohol/Substance Use Hx Alcohol Use: No - Smoking History Smoking history: Unknown if ever smoked Have you smoked in the past 12 months: No If you are a former smoker, when did you quit?: 08/08/2017 Home Medications - Allergies Allergies/Adverse Reactions: Allergies Allergy/AdvReac Type Severity Reaction Status Date / Time heparin Allergy Verified 09/07/17 22:36 - Home Medications Home Medications: Ambulatory Orders Alprazolam [Xanax] 2 mg PO BID 08/27/17 Amiodarone HCl [Cordarone -] 200 mg PO DAILY #30 tablet 08/27/17 Amoxicillin/Potassium Clav [Amox-Clav 875-125 mg Tablet] 1 each PO BID #4 tablet 08/27/17 Apixaban [Eliquis] 5 mg PO BID #30 tablet 08/27/17 Aspirin 81 mg PO DAILY #30 tab.chew 08/27/17 Atorvastatin Ca [Lipitor] 80 mg PO HS #30 tab 08/27/17 Buprenorphine HCl/Naloxone HCl [Suboxone 8 mg-2 mg Sl Tablets] 1 each SL BID 12/09 Docusate Sodium [Colace] 100 mg PO TID PRN #30 capsule 08/27/17 Furosemide [Lasix] 20 mg PO BID #28 tablet 08/27/17 Metoprolol Succinate [Toprol Xl] 25 mg PO DAILY #30 tab.er.24h 08/27/17 Family Disease History - Family Disease History Family Disease History: Heart Disease: Father Review of Systems - Review of Systems Constitutional: reports: Lethargy, Weakness Eyes: reports: No Symptoms HENT: reports: No Symptoms Neck: reports: No Symptoms Cardiovascular: reports: Other (no pain at CABG surgical sternal site; SOB on mild exertion) Respiratory: reports: Cough, SOB on Exertion Gastrointestinal: reports: No Symptoms Genitourinary: reports: No Symptoms Breasts: reports: No Symptoms Reported Musculoskeletal: reports: Joint Swelling Integumentary: reports: Change in Color (reddish left leg) Neurological: reports: Weakness Endocrine: reports: No Symptoms Psychiatric: reports: No Symptoms - Risk Factors Known Risk Factors: Yes: Age, Family History, Gender, Hypercholesterolemia, Hypertension, Physical Inactivity, Prior OH /Emb Stroke, Smoking, Other (s/p CABG; bioprosthetic MV replacement; ?ventricular aneurysmal repair) Vital Signs: Vital Signs Temperature 100.0 F H 09/07/17 21:53 Pulse Rate 79 09/08/17 13:24 Respiratory Rate 17 09/08/17 13:24 Blood Pressure 89/56 09/08/17 13:24 O2 Sat by Pulse Oximetry (%) 100 09/08/17 13:24 Constitutional: Yes: Calm Eyes: Yes: WNL HENT: Yes: WNL Neck: Yes: WNL Respiratory: Yes: Diminished, Wheezes (espiratory) Gastrointestinal: Yes: Soft Renal/: No: Anuria JVD: Yes Carotid Bruit: No PMI: Displaced Heart Sounds: Yes: S1, S2 Murmur: Yes: Systolic Murmur, Grade 2 (RSB-->apex) Musculoskeletal: Yes: Muscle Weakness Extremities: Yes: Cool Edema: Yes Edema: LLE: 2+, RLE: 2+ Peripheral Pulses WNL: Yes Integumentary: Yes: Erythema, Venous Stasis Changes Neurological: Yes: Alert, Oriented, Weakness Psychiatric: Yes: WNL - Other Data Labs, Other Data: CBC, BMP 09/08/17 06:18 09/08/17 06:18 INR, PTT INR 1.86 (0.82-1.09) H 09/07/17 22:34 Troponin, BNP 09/07/17 09/08/17 22:34 07:49 Troponin I 0.04 D 0.04 B-Natriuretic Peptide 4544.89 H Troponin, BNP 09/07/17 09/08/17 22:34 07:49 Troponin I 0.04 D 0.04 B-Natriuretic Peptide 4544.89 H Abnormal Lab Results 09/07/17 09/07/17 09/07/17 22:34 22:34 23:00 RBC 2.83 L Hgb 8.1 L Hct 25.7 L MCHC 31.5 L RDW 16.5 H Monocytes % 12.1 H Monocytes % (Manual) PT with INR 21.00 H INR 1.86 H Anion Gap Creatinine 1.4 H Calcium 7.6 L Alkaline Phosphatase 175 H D B-Natriuretic Peptide 4544.89 H Albumin 2.7 L 09/08/17 09/08/17 06:18 06:18 RBC 2.62 L Hgb 7.4 L Hct 23.4 L MCHC 31.7 L RDW 16.3 H Monocytes % Monocytes % (Manual) 11 H PT with INR INR Anion Gap 7 L Creatinine Calcium 7.4 L Alkaline Phosphatase 153 H B-Natriuretic Peptide Albumin 2.5 L Echo: Image Reviewed Ejection Fraction %: LVEF < 40 % Imaging - Results Chest X-ray: Image Reviewed (CHF) Ultrasound: Image Reviewed (ECHO: see report) EKG: Image Reviewed (NSR; IWMI) Problem List - Problems (1) Acute on chronic systolic and diastolic heart failure, NYHA class 2 Assessment/Plan: On amiodarone, metoprolol. Furosemide IV; f/u BUN/Cr, electrolytes, Is and Os, daily weight. (Start ACEI when BP allows; presently has periods of relative hypotension, though A&Ox3, good urine output). F/u TSH, lipids (on atorvastatin 80 mg daily). TNI 0.04; f/u serially. Code(s): I50.43 - ACUTE ON CHRONIC COMBINED SYSTOLIC AND DIASTOLIC HRT FAIL (2) Hx of CABG Assessment/Plan: Given pt's recent CABG, bioprosthetic mitral valve replacement, and ? ventricular aneurysmal repair, with present acute CHF, anemia and hypotension, would recommend transfer to [facility] surgical team. On amiodarone and metoprolol. Code(s): Z95.1 - PRESENCE OF AORTOCORONARY BYPASS GRAFT (3) History of mitral valve replacement with bioprosthetic valve Assessment/Plan: ECHO notes well-seated valve, opening well, without significant MR. Code(s): Z98.890 - OTHER SPECIFIED POSTPROCEDURAL STATES; Z95.3 - PRESENCE OF XENOGENIC HEART VALVE (4) Hx of myocardial infarction Assessment/Plan: Pt reports having had OH in 2016; s/p CABG 07/2017. Code(s): I25.2 - OLD MYOCARDIAL INFARCTION (5) Anemia Code(s): D64.9 - ANEMIA, UNSPECIFIED
--- NOTE | 2017-09-08 13:33 | PN ---
Teaching Attending Note Name of Resident: Scott Reyes ATTENDING PHYSICIAN STATEMENT I saw and evaluated the patient. I reviewed the resident's note and discussed the case with the resident. I agree with the resident's findings and plan as documented. SUBJECTIVE: No fever or chills, mild OSB , feels tired and week . has LE edema . OBJECTIVE: NAD , pale , sweaty. awake alert and oriented x 3 Cv: RRR, nl s1, S2, No MRG . has JVD lungs : crackles half way down the lungs Ext : 2+ pitting edema, L > R . slight hyperpigmentation in L leg , no increased warmth . Abd; sfot, Nt, Nd , NL BS MS: mid sternal surgical wounds with n discharge , well healing . epigastric wounds with good healing as well A/P : 52 y/o man with h/o CVA, HTN, [place], s/p CABG/MVr, vent aneurysm repair in who rpesented with SOB and LE edema , he was found t be in heart failure 1- Acute CHF exacerbatin : received lasix last night , but now hypotensive - Echo to evaluate EF. - if EF is low , might need inoptrops to be able to diurese - cont lasix - for now , BB on hold due to hypotension - obtain echo report form roll off driver , and contact his surgeon - EKG with Q waves in inferior leads , and TWI in lateral lead which are not changed form 08/27 . - consult dr. snider , who was notified 2- Hypotension : could be due to decreased cardiac input , but also need to r/o sepsis in the setting of new surgery - there is no signs of cellulitis in LE - send blood cx . - wounds don't look infected. - check UA . - hold off Abx until source is identified 3- CAD / s/p CABG : cont ASA , statin, and BB when Bp can tolerates. no evidence of acute ACS Not sure why on Amio, ? ventricular arrhythmias after sx. will cont and confirm withhis roll off driver 4- LETITIA: improved with diuresis . - monitor 5- h/o recent MVR: 6- h/o CVA : no known h/o a fib, - cont elquis and amio and will confirm meds and conditions 7- anemia : probably after surgical blood loss. - will hold off transfusion until diuresed. - check iron studies HLOC. might nee d ICU, will d/w museum host/hostess
--- NOTE | 2017-09-08 17:59 | DS ---
Physical Exam: LABS Laboratory Results - last 24 hr 09/07/17 09/07/17 09/07/17 22:34 22:34 23:00 WBC 8.9 D RBC 2.83 L Hgb 8.1 L Hct 25.7 L MCV 90.8 MCH 28.6 MCHC 31.5 L RDW 16.5 H Plt Count 211 D MPV 8.9 Neutrophils % 63.5 Neutrophils % (Manual) Band Neutrophils % Lymphocytes % 20.4 Lymphocytes % (Manual) Monocytes % 12.1 H Monocytes % (Manual) Eosinophils % 2.7 D Eosinophils % (Manual) Basophils % 1.3 Basophils % (Manual) Myelocytes % (Man) Metamyelocytes Platelet Estimate Anisocytosis Microcytosis Target Cells PT with INR 21.00 H INR 1.86 H Sodium 138 Potassium 4.1 Chloride 101 Carbon Dioxide 28 Anion Gap 9 BUN 11 D Creatinine 1.4 H Creat Clearance w eGFR 53.22 Random Glucose 94 Lactic Acid Calcium 7.6 L Phosphorus Magnesium Ferritin Total Bilirubin 0.3 D AST 27 D ALT 25 D Alkaline Phosphatase 175 H D Creatine Kinase 83 Troponin I 0.04 D B-Natriuretic Peptide 4544.89 H Total Protein 6.9 Albumin 2.7 L TSH Urine Color Urine Appearance Urine pH Ur Specific [place] Urine Protein Urine Glucose (UA) Urine Ketones Urine Blood Urine Nitrite Urine Bilirubin Urine Urobilinogen Ur Leukocyte Esterase Blood Type Antibody Screen 09/07/17 09/08/17 09/08/17 23:27 06:18 06:18 WBC 9.6 RBC 2.62 L Hgb 7.4 L Hct 23.4 L MCV 89.4 MCH 28.3 MCHC 31.7 L RDW 16.3 H Plt Count 224 MPV 8.3 Neutrophils % No Result Required. Neutrophils % (Manual) 59.6 Band Neutrophils % 1.0 Lymphocytes % No Result Required. Lymphocytes % (Manual) 25.3 Monocytes % Monocytes % (Manual) 11 H Eosinophils % Eosinophils % (Manual) 1.0 Basophils % Basophils % (Manual) 0.0 Myelocytes % (Man) 0 Metamyelocytes 0 Platelet Estimate Normal Anisocytosis 2+ Microcytosis 2+ Target Cells 1+ PT with INR INR Sodium 137 Potassium 4.0 Chloride 101 Carbon Dioxide 29 Anion Gap 7 L BUN 11 Creatinine 1.3 Creat Clearance w eGFR 57.97 Random Glucose 85 Lactic Acid 1.2 Calcium 7.4 L Phosphorus 3.5 Magnesium 2.0 Ferritin 86.136 Total Bilirubin 0.4 D AST 28 ALT 22 Alkaline Phosphatase 153 H Creatine Kinase Troponin I B-Natriuretic Peptide Total Protein 6.4 Albumin 2.5 L TSH 2.39 Urine Color Urine Appearance Urine pH Ur Specific [place] Urine Protein Urine Glucose (UA) Urine Ketones Urine Blood Urine Nitrite Urine Bilirubin Urine Urobilinogen Ur Leukocyte Esterase Blood Type Antibody Screen 09/08/17 09/08/17 09/08/17 07:00 07:41 07:49 WBC RBC Hgb Hct MCV MCH MCHC RDW Plt Count MPV Neutrophils % Neutrophils % (Manual) Band Neutrophils % Lymphocytes % Lymphocytes % (Manual) Monocytes % Monocytes % (Manual) Eosinophils % Eosinophils % (Manual) Basophils % Basophils % (Manual) Myelocytes % (Man) Metamyelocytes Platelet Estimate Anisocytosis Microcytosis Target Cells PT with INR INR Sodium Potassium Chloride Carbon Dioxide Anion Gap BUN Creatinine Creat Clearance w eGFR Random Glucose Lactic Acid Calcium Phosphorus Magnesium Ferritin Total Bilirubin AST ALT Alkaline Phosphatase Creatine Kinase 82 Troponin I 0.04 B-Natriuretic Peptide Total Protein Albumin TSH Urine Color Urine Appearance Urine pH Ur Specific [place] Urine Protein Urine Glucose (UA) Urine Ketones Urine Blood Urine Nitrite Urine Bilirubin Urine Urobilinogen Ur Leukocyte Esterase Blood Type O POSITIVE O POSITIVE Antibody Screen Negative 09/08/17 11:20 WBC RBC Hgb Hct MCV MCH MCHC RDW Plt Count MPV Neutrophils % Neutrophils % (Manual) Band Neutrophils % Lymphocytes % Lymphocytes % (Manual) Monocytes % Monocytes % (Manual) Eosinophils % Eosinophils % (Manual) Basophils % Basophils % (Manual) Myelocytes % (Man) Metamyelocytes Platelet Estimate Anisocytosis Microcytosis Target Cells PT with INR INR Sodium Potassium Chloride Carbon Dioxide Anion Gap BUN Creatinine Creat Clearance w eGFR Random Glucose Lactic Acid Calcium Phosphorus Magnesium Ferritin Total Bilirubin AST ALT Alkaline Phosphatase Creatine Kinase Troponin I B-Natriuretic Peptide Total Protein Albumin TSH Urine Color Yellow Urine Appearance Clear Urine pH 7.0 Ur Specific [place] 1.015 Urine Protein Negative Urine Glucose (UA) Negative Urine Ketones Negative Urine Blood Negative Urine Nitrite Negative Urine Bilirubin Negative Urine Urobilinogen 4.0 e.u/dl Ur Leukocyte Esterase Negative Blood Type Antibody Screen HOSPITAL COURSE: Date of Admission:09/08/17 Pt is a 52 y/o M with PMH Htn, CVA (2012), [place] (2015), CABG 08/2017 who presents to ED with b/l LE swelling. Pt states that he was d/c'ed from [facility] on 08/26 , and at that time, his left leg was swollen (pt had vein graft harvested from left leg). On 08/27, he developed R leg swelling, for which he visited [facility] and had dopplers done, which were negative. Pt states he went home, continued taking his medications as directed and his leg swelling did not resolve, so he finally came to the ED tonight. In that time, pt notes that he has not been urinating more than once daily despite eating and drinking normally and taking lasix. In the emergency room, patient received lasix 40 and had a normal EKG. Cellulitis was ruled out due to clinical presentation. An echo was performed that showed apical/septal thickening, apical dyskinesis, paradoxical septal motion, moderate L pleural effusion. Patient was re-evaluated at bedside, and his CHF exacerbation coupled with a low blood pressure and recent cardiac surgery prompted us to transfer him to his cardiac surgeon at . Patient was accepted for transfer on 09/08/17. Date of Discharge: 09/08/17 Minutes to complete discharge: 35 Discharge Summary Reason For Visit: ACUTE ON CHRONIC CONGESTIVE HEART FAILURE Current Active Problems Acute exacerbation of CHF (congestive heart failure) (Acute) Acute on chronic systolic and diastolic heart failure, NYHA class 2 (Acute) Anemia (Acute) History of mitral valve replacement with bioprosthetic valve (Acute) Hx of CABG (Acute) Hx of myocardial infarction (Acute) Pedal edema (Acute) Condition: Stable - Instructions Diet, Activity, Other Instructions: Patient presented to the ED with worsening b/l LE edema after CABG in 08/[address] [facility]. He's clinically fluid overloaded, has crackles and b/l LE +2 pitting edema, elevated BNP. He received 40mg IV lasix 1 time and has been hypotensive since ED admission. Beta primo has been held. Case discussed with Dr. Zachariah Montilla and transfer [facility] is being arranged. Referrals: STAFF,NOT ON [Primary Care Provider] - Disposition: TRANSFER ACUTE CARE/OTHER HOSP - Home Medications Comprehensive Discharge Medication List: Ambulatory Orders Alprazolam [Xanax] 2 mg PO BID 08/27/17 Amiodarone HCl [Cordarone -] 200 mg PO DAILY #30 tablet 08/27/17 Amoxicillin/Potassium Clav [Amox-Clav 875-125 mg Tablet] 1 each PO BID #4 tablet 08/27/17 Apixaban [Eliquis] 5 mg PO BID #30 tablet 08/27/17 Aspirin 81 mg PO DAILY #30 tab.chew 08/27/17 Atorvastatin Ca [Lipitor] 80 mg PO HS #30 tab 08/27/17 Buprenorphine HCl/Naloxone HCl [Suboxone 8 mg-2 mg Sl Tablets] 1 each SL BID 12/09 Docusate Sodium [Colace] 100 mg PO TID PRN #30 capsule 08/27/17 Furosemide [Lasix] 20 mg PO BID #28 tablet 08/27/17 Metoprolol Succinate [Toprol Xl] 25 mg PO DAILY #30 tab.er.24h 08/27/17 This patient is new to me today: Yes Date on this admission: 09/08/17 Emergency Visit: Yes ED Registration Date: 09/08/17 Care time: The patient presented to the Emergency Department on the above date and was hospitalized for further evaluation of their emergent condition. Critical Care patient: No - Discharge Referral Referred to [facility] Med P.C.: No
[2017-09-08 20:38] VITALS: BMI 26.5
[2017-09-08] MEDS ORDERED: ATORVASTATIN CA 80 MG TABLET (FP) PO SCH (22:00)
[2017-09-09 06:06] LABS: SERUM IRON SATURATION 10 % (15-55); TOTAL IRON BINDING CAPACITY 239 ug/dL (250-450); UIBC 215 ug/dL (111-343)
--- NOTE | 2017-09-09 07:43 | PN ---
Physical Exam: SUBJECTIVE: Patient seen and examined at bedside. Denies chest pain. States that the swelling in his L leg is still there, but that it has improved. OBJECTIVE: Vital Signs Period Temp Pulse Resp BP Sys/Vines Pulse Ox Last 24 Hr 96.3 F-98.7 F 64-79 17-20 81-104/54-73 96-100 GENERAL: The patient is awake, alert, and fully oriented, in no acute distress. HEAD: Normal with no signs of trauma. LUNGS: Breath sounds equal, clear to auscultation bilaterally, no wheezes, no crackles, no accessory muscle use. HEART: Regular rate and rhythm, S1, S2 without murmur, rub or gallop. ABDOMEN: Soft, nontender, nondistended, normoactive bowel sounds, no guarding, no rebound, no hepatosplenomegaly, no masses. EXTREMITIES: 2+ pulses, warm, well-perfused, no edema. NEUROLOGICAL: Cranial nerves II through XII grossly intact. Normal speech, gait not observed. PSYCH: Normal mood, normal affect. SKIN: Warm, dry, normal turgor, no rashes or lesions noted Laboratory Results - last 24 hr 09/08/17 09/08/17 09/08/17 06:18 06:18 07:00 Neutrophils % (Manual) 59.6 Band Neutrophils % 1.0 Lymphocytes % (Manual) 25.3 Monocytes % (Manual) 11 H Eosinophils % (Manual) 1.0 Basophils % (Manual) 0.0 Myelocytes % (Man) 0 Metamyelocytes 0 Platelet Estimate Normal Anisocytosis 2+ Microcytosis 2+ Target Cells 1+ Sodium 137 Potassium 4.0 Chloride 101 Carbon Dioxide 29 Anion Gap 7 L BUN 11 Creatinine 1.3 Creat Clearance w eGFR 57.97 Random Glucose 85 Calcium 7.4 L Phosphorus 3.5 Magnesium 2.0 Iron TIBC Iron Saturation Ferritin 86.136 Total Bilirubin 0.4 D AST 28 ALT 22 Alkaline Phosphatase 153 H Creatine Kinase Troponin I Total Protein 6.4 Albumin 2.5 L TSH 2.39 Urine Color Urine Appearance Urine pH Ur Specific [place] Urine Protein Urine Glucose (UA) Urine Ketones Urine Blood Urine Nitrite Urine Bilirubin Urine Urobilinogen Ur Leukocyte Esterase Blood Type O POSITIVE Antibody Screen Negative 09/08/17 09/08/17 09/08/17 07:41 07:49 11:20 Neutrophils % (Manual) Band Neutrophils % Lymphocytes % (Manual) Monocytes % (Manual) Eosinophils % (Manual) Basophils % (Manual) Myelocytes % (Man) Metamyelocytes Platelet Estimate Anisocytosis Microcytosis Target Cells Sodium Potassium Chloride Carbon Dioxide Anion Gap BUN Creatinine Creat Clearance w eGFR Random Glucose Calcium Phosphorus Magnesium Iron TIBC Iron Saturation Ferritin Total Bilirubin AST ALT Alkaline Phosphatase Creatine Kinase 82 Troponin I 0.04 Total Protein Albumin TSH Urine Color Yellow Urine Appearance Clear Urine pH 7.0 Ur Specific [place] 1.015 Urine Protein Negative Urine Glucose (UA) Negative Urine Ketones Negative Urine Blood Negative Urine Nitrite Negative Urine Bilirubin Negative Urine Urobilinogen 4.0 e.u/dl Ur Leukocyte Esterase Negative Blood Type O POSITIVE Antibody Screen 09/08/17 14:27 Neutrophils % (Manual) Band Neutrophils % Lymphocytes % (Manual) Monocytes % (Manual) Eosinophils % (Manual) Basophils % (Manual) Myelocytes % (Man) Metamyelocytes Platelet Estimate Anisocytosis Microcytosis Target Cells Sodium Potassium Chloride Carbon Dioxide Anion Gap BUN Creatinine Creat Clearance w eGFR Random Glucose Calcium Phosphorus Magnesium Iron 24 L TIBC 239 L Iron Saturation 10 L Ferritin Total Bilirubin AST ALT Alkaline Phosphatase Creatine Kinase Troponin I Total Protein Albumin TSH Urine Color Urine Appearance Urine pH Ur Specific [place] Urine Protein Urine Glucose (UA) Urine Ketones Urine Blood Urine Nitrite Urine Bilirubin Urine Urobilinogen Ur Leukocyte Esterase Blood Type Antibody Screen Active Medications Generic Name Dose Route Start Last Admin Trade Name Stanislavq PRN Reason Stop Dose Admin Alprazolam 2 mg 09/08/17 10:00 09/08/17 22:13 Xanax - PO 2 mg BID KAILEE Administration Amiodarone HCl 200 mg 09/08/17 10:00 09/08/17 09:28 Cordarone - PO 200 mg DAILY KAILEE Administration Apixaban 5 mg 09/08/17 10:00 09/08/17 22:13 Eliquis - PO 5 mg BID KAILEE Administration Aspirin 81 mg 09/08/17 10:00 09/08/17 09:27 Asa - PO 81 mg DAILY KAILEE Administration Atorvastatin Calcium 80 mg 09/08/17 22:00 09/08/17 22:13 Lipitor - PO 80 mg HS KAILEE Administration Buprenorphine/Naloxone 1 each 09/08/17 10:00 09/08/17 22:13 Suboxone 8mg/2mg Sl Film - SL 1 each BID KAILEE Administration Docusate Sodium 100 mg 09/08/17 04:30 Colace - PO TID PRN CONSTIPATION Furosemide 40 mg 09/08/17 10:00 09/08/17 09:37 Lasix Injection - IVPUSH Not Given DAILY KAILEE Metoprolol Succinate 25 mg 09/08/17 10:00 09/08/17 09:37 Toprol Xl - PO Not Given DAILY KAILEE ASSESSMENT/PLAN: 52 year old male with a past medical history of HTN, CVA (2012), CT (2015), CABG 08/2017 at [facility] admitted for treatment of CHF and L leg cellulitis. #CHF Exacerbation: due to bibasilar crackles and b/l edema -received lasix 40mg -continue amiodarone/eliquis for post CABG Afib -continue metoprolol 25mg -EKG normal yesterday, on monitor today -echo: apical/septal thickening, apical dyskinesis, paradoxical septal motion, moderate L pleural effusion #Anemia: likely iron deficiency related -repeat CBC in AM, transfusion protocols #Possible cellulitis: ruled out, more than likely venous stasis -LLE redness and warmth > right -Doppler official read negative -not on IV abx #LETITIA: -Pt has dry mucous membranes -unclear baseline -cautious to give fluids in setting of possible CHF s/p recent CABG #HTN -BP currently under control -Continue Toprol XL #Anemia -Hb 8.1 -consider transfusion at Hb< 8 in post-CABG pt #Asthma -c/w home meds #Anxiety -pt currently calm and without anxiety -c/w home meds #FEN -Not on fluids (receiving some with IV ABx) #Prophylaxis -on eliquis #Disposition -pt stable to DC home Visit type - Emergency Visit Emergency Visit: No - New Patient This patient is new to me today: No - Critical Care Critical Care patient: No
[2017-09-09] MEDS: ASPIRIN 81 MG CHEWABLE TABLETS PO SCH (09:14)
[2017-09-09] MEDS: APIXABAN 5 MG TABLET PO SCH (09:14)
[2017-09-09] MEDS: FUROSEMIDE 40 MG/4 ML INJECTABLE VIAL IVPUSH SCH (09:14)
[2017-09-09] MEDS: METOPROLOL SUCCINATE 25 MG TAB.SR.24H (FP) PO SCH (09:14)
[2017-09-09] MEDS: AMIODARONE HCL 200 MG TABLET (FP) PO SCH (09:14)
[2017-09-09] MEDS: ALPRAZolam 2 MG TABLET PO SCH (09:14)
[2017-09-09] MEDS: BUPRENORPHINE/NALOXONE 8 MG/2 MG FILM PACKET SL SCH (09:14)
[2017-09-09 09:54] LABS: HEMATOCRIT 28.1 % (35.4-49); HEMOGLOBIN 8.6 GM/dL (11.7-16.9); MCH 27.6 pg (25.7-33.7); MCHC 30.5 g/dl (32.0-35.9); MEAN CELL VOLUME 90.5 fl (80-96); MEAN PLT VOLUME 8.6 fl (7.5-11.1); PLATELET COUNT 285 K/MM3 (134-434); RBC 3.11 M/mm3 (4.00-5.60); RDW 16.3 % (11.9-15.9); WHITE BLOOD COUNT 11.4 K/mm3 (4.0-10.0)
--- NOTE | 2017-09-09 10:09 | PN ---
Progress Note, Physician History of Present Illness: The patient is a 52 year old male, with a significant past medical history (?at [facility]) of CABG bioprosthetic mitral valve, and ?ventricular aneurysmal repair 08/08/18 (pt denies any prior cardiaic caths or surgeries), previously seen in the ED on 08/27/17 for left leg swelling, who presents to the emergency department with bilateral lower extremity redness and swelling. Patient states that his left leg has worsened and become erythematous and his right leg has begun to swell as well. Patient has a low grade fever as well. Patient denies chest pain upon rest and admits to some chest discomfort when he coughs. He denies any recent chills, fever, headache or dizziness. He denies any recent nausea, vomit, diarrhea or constipation. He denies any recent shortness of breath. He denies any recent dysuria, frequency, urgency or hematuria. Pt says he had an MN in 2016,(had chest pain and "passed out"), but denies having had a coronary angiogram at the time. - Current Medication List Current Medications: Active Medications Alprazolam (Xanax -) 2 mg PO BID [facility] Last Admin: 09/09/17 09:14 Dose: 2 mg Amiodarone HCl (Cordarone -) 200 mg PO DAILY [facility] Last Admin: 09/09/17 09:14 Dose: 200 mg Apixaban (Eliquis -) 5 mg PO BID [facility] Last Admin: 09/09/17 09:14 Dose: 5 mg Aspirin (Asa -) 81 mg PO DAILY [facility] Last Admin: 09/09/17 09:14 Dose: 81 mg Atorvastatin Calcium (Lipitor -) 80 mg PO HS [facility] Last Admin: 09/08/17 22:13 Dose: 80 mg Buprenorphine/Naloxone (Suboxone 8mg/2mg Sl Film -) 1 each SL BID [facility] Last Admin: 09/09/17 09:14 Dose: 1 each Docusate Sodium (Colace -) 100 mg PO TID PRN PRN Reason: CONSTIPATION Furosemide (Lasix Injection -) 40 mg IVPUSH DAILY [facility] Last Admin: 09/09/17 09:14 Dose: 40 mg Metoprolol Succinate (Toprol Xl -) 25 mg PO DAILY [facility] Last Admin: 09/09/17 09:14 Dose: 25 mg - Objective Vital Signs: Vital Signs Temperature 96.3 F L 09/09/17 05:42 Pulse Rate 70 09/09/17 05:42 Respiratory Rate 20 09/09/17 05:42 Blood Pressure 101/67 09/09/17 05:42 O2 Sat by Pulse Oximetry (%) 96 09/08/17 21:00 Eyes: Yes: WNL, Conjunctiva Clear, EOM Intact HENT: Yes: WNL, Atraumatic, Normocephalic Neck: Yes: WNL, Supple, Trachea Midline Cardiovascular: Yes: WNL, Regular Rate and Rhythm, Murmur Respiratory: Yes: WNL, Regular, CTA Bilaterally Gastrointestinal: Yes: WNL, Normal Bowel Sounds Genitourinary: Yes: WNL Musculoskeletal: Yes: WNL Extremities: Yes: WNL Edema: Yes Integumentary: Yes: WNL Neurological: Yes: WNL, Alert, Oriented ...Motor Strength: WNL Psychiatric: Yes: WNL Labs: CBC, BMP 09/09/17 09:15 09/08/17 06:18 INR, PTT INR 1.86 (0.82-1.09) H 09/07/17 22:34 Assessment/Plan - Problems (1) Acute on chronic systolic and diastolic heart failure, NYHA class 2 Assessment/Plan: On amiodarone, metoprolol. Furosemide IV; f/u BUN/Cr, electrolytes, Is and Os, daily weight. (Start ACEI when BP allows; presently has periods of relative hypotension, though A&Ox3, good urine output). F/u TSH, lipids (on atorvastatin 80 mg daily). TNI 0.04; f/u serially. Code(s): I50.43 - ACUTE ON CHRONIC COMBINED SYSTOLIC AND DIASTOLIC HRT FAIL (2) Hx of CABG Assessment/Plan: Given pt's recent CABG, bioprosthetic mitral valve replacement, and ? ventricular aneurysmal repair, with present acute CHF, anemia and hypotension, would recommend transfer to [facility] surgical team. On amiodarone and metoprolol. Code(s): Z95.1 - PRESENCE OF AORTOCORONARY BYPASS GRAFT (3) History of mitral valve replacement with bioprosthetic valve Assessment/Plan: ECHO notes well-seated valve, opening well, without significant MR. Code(s): Z98.890 - OTHER SPECIFIED POSTPROCEDURAL STATES; Z95.3 - PRESENCE OF XENOGENIC HEART VALVE (4) Hx of myocardial infarction Assessment/Plan: Pt reports having had MN in 2016; s/p CABG 07/2017. Code(s): I25.2 - OLD MYOCARDIAL INFARCTION (5) Anemia Code(s): D64.9 - ANEMIA, UNSPECIFIED
[2017-09-09 11:46] VITALS: PULSE 71
[2017-09-09] MEDS ORDERED: FUROSEMIDE 40 MG TABLET (FP) PO SCH (14:00)
[2017-09-09 15:23] VITALS: BP 104/53; TEMP 98
[2017-09-09 16:43] LABS: HEMATOCRIT 28.3 % (35.4-49); HEMOGLOBIN 8.9 GM/dL (11.7-16.9); MCH 28.3 pg (25.7-33.7); MCHC 31.3 g/dl (32.0-35.9); MEAN CELL VOLUME 90.2 fl (80-96); MEAN PLT VOLUME 8.6 fl (7.5-11.1); PLATELET COUNT 287 K/MM3 (134-434); RBC 3.14 M/mm3 (4.00-5.60); RDW 16.5 % (11.9-15.9); WHITE BLOOD COUNT 9.4 K/mm3 (4.0-10.0)
--- NOTE | 2017-09-09 16:54 | DS ---
Physical Exam: HOSPITAL COURSE: Date of Admission:09/08/17 Pt is a 52 y/o M with PMH Htn, CVA (2013), [place] (2016), CABG 08/2017 who presented to ED with b/l LE swelling. Pt states that he was d/c'ed from [facility] on 08/26 , and at that time, his left leg was swollen (pt had vein graft harvested from left leg). Pt states that on 08/27, he developed R leg swelling, for which he visited [facility] and had dopplers done, which were negative. Pt states he went home , continued taking his medications as directed and his leg swelling did not resolve, so he finally came to the ED tonight. In that time, pt notes that he has not been urinating more than once daily despite eating and drinking normally and taking lasix. Patient was diagnosed with acute CHF exacerbation admitted to telemetry. His hemoglobin was found to be low at 7.4. His EKG was within normal limits. Patient was treated with lasix 40mg once a day. The swelling in his legs improved and his hemoglobin improved to 8.6. His cardiothoracic surgeon at [facility], Dr. Zachariah Montilla was contacted. His surgeon states that patient is on eliquis and amiodarone for post CABG A-fib. Surgeon stated that patient should follow with him next week in his office. Patient was discharged on 09/09 with instructions to follow with his surgeon, our conversion developer, and to take 40 of lasix twice a day from now on as per his surgeon's recommendation. Date of Discharge: 09/09/17 Minutes to complete discharge: 35 Discharge Summary Reason For Visit: ACUTE ON CHRONIC CONGESTIVE HEART FAILURE Current Active Problems Acute exacerbation of CHF (congestive heart failure) (Acute) Acute on chronic systolic and diastolic heart failure, NYHA class 2 (Acute) Anemia (Acute) History of mitral valve replacement with bioprosthetic valve (Acute) Hx of CABG (Acute) Hx of myocardial infarction (Acute) Pedal edema (Acute) - Instructions Diet, Activity, Other Instructions: You were treated in the hospital for congestive heart failure, which caused the swelling in your legs. It is important that you follow the following recommendations. Medical Recommendations: 1. Please take Lasix 40mg by mouth twice a day as per cardiothoracic surgeon at [facility]. 2. Continue your other home medications 3. Please make an appointment to see your surgeon at [facility], Dr. Montilla, by Thursday to discuss further management 4. Please make an appointment with your primary care physician within 1 week of discharge. 5. Make an appointment with our conversion developer Dr. Lopez within 2 weeks of discharge. If you experience chest pain, shortness of breath, increased swelling in your legs, please return to the emergency room. Referrals: Mahesh Lopez MD [Staff Physician] - 2 Weeks STAFF,NOT ON [Primary Care Provider] - Disposition: HOME - Home Medications Comprehensive Discharge Medication List: Ambulatory Orders Alprazolam [Xanax] 2 mg PO BID 08/27/17 Amiodarone HCl [Cordarone -] 200 mg PO DAILY #30 tablet 08/27/17 Amoxicillin/Potassium Clav [Amox-Clav 875-125 mg Tablet] 1 each PO BID #4 tablet 08/27/17 Apixaban [Eliquis] 5 mg PO BID #30 tablet 08/27/17 Aspirin 81 mg PO DAILY #30 tab.chew 08/27/17 Atorvastatin Ca [Lipitor] 80 mg PO HS #30 tab 08/27/17 Buprenorphine HCl/Naloxone HCl [Suboxone 8 mg-2 mg Sl Tablets] 1 each SL BID 12/09 Docusate Sodium [Colace] 100 mg PO TID PRN #30 capsule 08/27/17 Metoprolol Succinate [Toprol Xl] 25 mg PO DAILY #30 tab.er.24h 08/27/17 Furosemide [Lasix -] 40 mg PO BID@0600,1400 #28 tablet 09/09/17 This patient is new to me today: No Emergency Visit: No Critical Care patient: No - Discharge Referral Referred to [facility] Med P.C.: No
--- NOTE | 2017-09-09 18:53 | PN ---
Teaching Attending Note Name of Resident: Scott Reyes ATTENDING PHYSICIAN STATEMENT I saw and evaluated the patient. I reviewed the resident's note and discussed the case with the resident. I agree with the resident's findings and plan as documented. SUBJECTIVE: OBJECTIVE: Vital Signs Temperature 98 F 09/09/17 14:15 Pulse Rate 71 09/09/17 14:15 Respiratory Rate 20 09/09/17 14:15 Blood Pressure 104/53 09/09/17 14:15 O2 Sat by Pulse Oximetry (%) 95 09/09/17 09:00 CBCD WBC 9.4 K/mm3 (4.0-10.0) 09/09/17 16:00 RBC 3.14 M/mm3 (4.00-5.60) L 09/09/17 16:00 Hgb 8.9 GM/dL (11.7-16.9) L 09/09/17 16:00 Hct 28.3 % (35.4-49) L 09/09/17 16:00 MCV 90.2 fl (80-96) 09/09/17 16:00 MCHC 31.3 g/dl (32.0-35.9) L 09/09/17 16:00 RDW 16.5 % (11.9-15.9) H 09/09/17 16:00 Plt Count 287 K/MM3 (134-434) 09/09/17 16:00 MPV 8.6 fl (7.5-11.1) 09/09/17 16:00 CMP Sodium 137 mmol/L (136-145) 09/08/17 06:18 Potassium 4.0 mmol/L (3.5-5.1) 09/08/17 06:18 Chloride 101 mmol/L (98-107) 09/08/17 06:18 Carbon Dioxide 29 mmol/L (21-32) 09/08/17 06:18 Anion Gap 7 (8-16) L 09/08/17 06:18 BUN 11 mg/dL (7-18) 09/08/17 06:18 Creatinine 1.3 mg/dL (0.7-1.3) 09/08/17 06:18 Creat Clearance w eGFR 57.97 (>60) 09/08/17 06:18 Random Glucose 85 mg/dL (74-106) 09/08/17 06:18 Calcium 7.4 mg/dL (8.5-10.1) L 09/08/17 06:18 Total Bilirubin 0.4 mg/dL (0.2-1.0) D 09/08/17 06:18 AST 28 U/L (15-37) 09/08/17 06:18 ALT 22 U/L (12-78) 09/08/17 06:18 Alkaline Phosphatase 153 U/L (45-117) H 09/08/17 06:18 Total Protein 6.4 g/dl (6.4-8.2) 09/08/17 06:18 Albumin 2.5 g/dl (3.4-5.0) L 09/08/17 06:18 CARDIAC ENZYMES Creatine Kinase 82 IU/L (39-308) 09/08/17 07:49 Troponin I 0.04 ng/ml (0.00-0.05) 09/08/17 07:49 Home Medications Medication Instructions Recorded Alprazolam [Xanax] 2 mg PO BID 08/27/17 Amiodarone HCl [Cordarone -] 200 mg PO DAILY #30 tablet 08/27/17 Amoxicillin/Potassium Clav 1 each PO BID #4 tablet 08/27/17 [Amox-Clav 875-125 mg Tablet] Apixaban [Eliquis] 5 mg PO BID #30 tablet 08/27/17 Aspirin 81 mg PO DAILY #30 tab.chew 08/27/17 Atorvastatin Ca [Lipitor] 80 mg PO HS #30 tab 08/27/17 Buprenorphine HCl/Naloxone HCl 1 each SL BID 08/27/17 [Suboxone 8 mg-2 mg Sl Tablets] Docusate Sodium [Colace] 100 mg PO TID PRN #30 capsule 08/27/17 Metoprolol Succinate [Toprol Xl] 25 mg PO DAILY #30 tab.er.24h 08/27/17 Furosemide [Lasix -] 40 mg PO BID@0600,1400 #28 tablet 09/09/17 ASSESSMENT AND PLAN: 52 y/o man with h/o CVA, HTN, CT, s/p CABG/MVr, vent aneurysm repair in who rpesented with SOB and LE edema , he was found t be in heart failure # Acute CHF exacerbatin : received lasix last night , but now hypotensive - Echo to evaluate EF. - if EF is low , might need inoptrops to be able to diurese - cont lasix - for now , BB on hold due to hypotension - obtain echo report form supervisor international reservations , and contact his surgeon - EKG with Q waves in inferior leads , and TWI in lateral lead which are not changed form 08/27 . - consult dr. snider , who was notified # Hypotension : could be due to decreased cardiac input , but also need to r/o sepsis in the setting of new surgery - there is no signs of cellulitis in LE - send blood cx . - wounds don't look infected. - check UA . - hold off Abx until source is identified # CAD / s/p CABG : cont ASA , statin, and BB when Bp can tolerates. no evidence of acute ACS Not sure why on Amio, ? ventricular arrhythmias after sx. will cont and confirm withhis supervisor international reservations # LETITIA: improved with diuresis . - monitor # h/o recent MVR: Patient is doing well, discussed with his thoracosurgeon suggested to increase the Lasix 40mg po bid and follow up with the surgeon on Thursday also US of lower extremities were done previously and was negative, the swelling is down and pain subsided.
== END 2017-09-09 18:00 | disposition home or self-care (01) | DRG 194 ==
LOC: JER 21:27 → JERBED 09-08 01:41 → J4W 09-08 18:20
PROVIDERS: ADMIT Internal Medicine; ATTEND Internal Medicine
DX: I11.0 Hypertensive heart disease with heart failure (principal); I50.43 Acute on chronic combined systolic (congestive) and diastolic (congestive) heart failure; D64.9 Anemia, unspecified; J45.909 Unspecified asthma, uncomplicated; F41.8 Other specified anxiety disorders; N17.9 Acute kidney failure, unspecified; R60.0 Localized edema; I25.2 Old myocardial infarction; I25.10 Atherosclerotic heart disease of native coronary artery without angina pectoris; I95.89 Other hypotension; Z95.1 Presence of aortocoronary bypass graft; Z95.2 Presence of prosthetic heart valve; Z86.73 Personal history of transient ischemic attack (TIA), and cerebral infarction without residual deficits
CPT/HCPCS: 36415; 71045-TC; 80053; 81003; 82550; 82728; 83540; 83550; 83605; 83735; 83880; 84100; 84443; 84484; 85025; 85027; 85610; 86850; 86900; 86901; 87040; 93005; 93010; 93306-TC; 93970-TC; 99285-25